=== PATIENT | female | born 1990 | race Caucasian/White ===

== ENCOUNTER 2017-01-03 10:02 | Emergency (ER) | payer OTHER ==
--- NOTE | 2017-01-03 12:28 | ED ORDER SUMMARY ---
..... Patient: ADRIANNA DIAS OrderSheet [facility] VisitID: [id number] [address] [place] [address] 26y, F Registration Date/Time: 01/03/2017 ORDER SHEET Weight: 62.1 kg (stated) Allergies: Sulfa Antibiotics GENERAL ORDERS: MEDICATION ORDERS: LET Topical 1 application (NOW) (11:27 01/03/2017 Germain BECKWITH) (11:32 Ajeck R.N.) Tdap IM 0.5 mL (per protocol) (11:34 01/03/2017 Surendra R.N. per protocol) (11:38 Surendra R.N.) IV FLUIDS: ORDER SHEET NOTES: [Electronically signed by Thanh Del Toro MD (14:01/03/2017)] [Electronically signed by Peter Roach R.N. (15:57 01/03/2017)] [Electronically locked/signed by Peter Roach R.N. (15:57 01/03/2017)]
--- NOTE | 2017-01-03 12:28 | ED NURSING NOTES ---
Clinical Report - Nurses [facility] [place] [address] 01/03/2017 10:05 [id number] Triage time 10:37. Acuity: LEVEL 4. Chief Complaint: FALL (Right hip laceration). 10:39 01/03/17. DIMITRI COMA SCORE: Dimitri Coma Scale: 15- eyes open spontaneously (4); best verbal response- oriented x 4 (5); best motor response- obeys commands (6). --10:41 Peter Roach R.N. 10:37 01/03/17. BP: 127/71. HR: 54. RR: 16. O2 saturation: 100% on room air. Temp: 97.9 F. Pain level now: 01/08. --10:41 Peter Roach R.N. Weight: 62.1 kg stated. Height/Length: 64 inches Per Patient. BMI: 23.5. --10:38 Peter Roach R.N. Medications None. --10:38 Peter Roach R.N. Allergies Sulfa Antibiotics. --10:38 Peter Roach R.N. History This occurred just prior to arrival. Treatment SENIOR JAVA SOFTWARE ENGINEER: None. Trauma activation: Pre-hospital notification of patient arrival was not received. PAST MEDICAL HX: Tetanus status: unknown. Last tetanus: (Likely <5 years). Last normal menstrual period unknown. SOCIAL HX: Never smoker. Occasional alcohol use. No drug use. ABUSE ASSESSMENT: No report of abuse. --10:41 Peter Roach R.N. PROBLEMS: no known problems. ADDITIONAL SURGERIES: IUD. --10:38 Peter Roach R.N. Interventions ID band on patient. To treatment room. --10:41 Peetr Roach R.N. PHYSICAL ASSESSMENT 10:51 01/03/17. Ambulatory to room. GENERAL / NEURO / PSYCH: Alert. Oriented X 4. Appears in no acute distress. HEENT: Pupils equal, round and reactive to light. Head non-tender. RESPIRATORY: Respirations not labored. Chest nontender. Breath sounds within normal limits. CVS: Normal heart rate and rhythm. Pulses within normal limits. Capillary refill less than 2 seconds. GI / : Abdomen soft and nontender. EXTREMITIES: Extremities exhibit normal ROM. Neuro-vascular status intact to the extremity. SKIN: Skin is warm and dry. ( Small laceration on anterior right thigh, bleeding controlled. (covered with clear dressing SENIOR JAVA SOFTWARE ENGINEER). Denies any other injury, denies hitting her head.). --10:51 Peter Roach R.N. NURSING PROGRESS NOTES 10:51 01/03/17. Patient gowned. Reassurance given. Two patient identifiers checked. Call light placed in reach. Bed placed in lowest position. Brakes of bed on. Patient ready for evaluation- chart flagged. --10:51 Peter Roach R.N. 11:30 01/03/2017 LET Topical Topical Solution 1 application. Placed on a 2x2 gauze and secured with tape. Allergies verified and confirmed 5 rights. --11:32 Peter Roach R.N. 11:38 01/03/2017 TDAP IM 0.5 mL given. (Lot#: [id number], expiration date: 09/02/2018, Shoe Ironer: sanofi pasteur). Given in the right deltoid. Allergies verified and confirmed 5 rights. --11:38 Peter Roach R.N. 12:00 01/03/2017 LET Topical Response: no adverse reaction (Effective). --15:56 Peter Roach R.N. 12:23 01/03/17. WOUND REPAIR: Wound repair performed by ED physician. The wound is located on the (anterior-upper thigh). The wound is linear. Preparation: suture tray set-up. Wound cleansed per physician with sterile saline and irrigated per physician with sterile saline using a syringe. Procedure: wound repaired with sutures. Post-procedure: she was stable, no complications, bleeding controlled, neuro-vascular status intact distal to wound, dressing applied and wound care instructions given. Estimated blood loss: 0 mL. --12:23 Peter Roach R.N. 12:30 01/03/2017 TDAP IM Response: no adverse reaction. --15:57 Peter Roach R.N. DISPOSITION / DISCHARGE 12:35 01/03/17. Departure time: 1230. Condition at departure: improved and stable. No learning barriers present. Discharge instructions provided and reviewed with the patient. Reviewed warnings. Treatments reviewed. Patient verbalized understanding. Written instructions provided in Malay. The patient was discharged by the physician. She was discharged home and accompanied by family. She left the Emergency Department ambulatory and via private vehicle. Family member driving. --12:36 Peter Roach R.N. 12:25 01/03/17. BP: 120/70. HR: 55. RR: 16. O2 saturation: 100% on room air. Temp: 97.9 F (oral). Pain level now: 0/10. --12:36 Peter Roach R.N. Locked/Released at 01/03/2017 15:57 by Peter Roach R.N.
--- NOTE | 2017-01-03 12:28 | ED NURSING NOTES ---
Clinical Report - Nurses [facility] [place] [place] [address] 01/03/2017 10:05 [id number] TRI[facility] Triage time 10:37. Acuity: LEVEL 4. Chief Complaint: FALL (Right hip laceration). 10:39 01/03/17. DIMITRI COMA SCORE: Dimitri Coma Scale: 15- eyes open spontaneously (4); best verbal response- oriented x 4 (5); best motor response- obeys commands (6). --10:41 Peter Roach R.N. 10:37 01/03/17. BP: 127/71. HR: 54. RR: 16. O2 saturation: 100% on room air. Temp: 97.9 F. Pain level now: 01/08. --10:41 Peter Roach R.N. Weight: 62.1 kg stated. Height/Length: 64 inches Per Patient. BMI: 23.5. --10:38 Peter Roach R.N. Medications None. --10:38 Peter Roach R.N. Allergies Sulfa Antibiotics. --10:38 Peter Roach R.N. History This occurred just prior to arrival. Treatment HUMAN RESOURCE INTERNSHIP: None. Trauma activation: Pre-hospital notification of patient arrival was not received. PAST MEDICAL HX: Tetanus status: unknown. Last tetanus: (Likely <5 years). Last normal menstrual period unknown. SOCIAL HX: Never smoker. Occasional alcohol use. No drug use. ABUSE ASSESSMENT: No report of abuse. --10:41 Peter Roach R.N. PROBLEMS: no known problems. ADDITIONAL SURGERIES: IUD. --10:38 Peter Roach R.N. Interventions ID band on patient. To treatment room. --10:41 Peter Roach R.N. PHYSICAL ASSESSMENT 10:51 01/03/17. Ambulatory to room. GENERAL / NEURO / PSYCH: Alert. Oriented X 4. Appears in no acute distress. HEENT: Pupils equal, round and reactive to light. Head non-tender. RESPIRATORY: Respirations not labored. Chest nontender. Breath sounds within normal limits. CVS: Normal heart rate and rhythm. Pulses within normal limits. Capillary refill less than 2 seconds. GI / : Abdomen soft and nontender. EXTREMITIES: Extremities exhibit normal ROM. Neuro-vascular status intact to the extremity. SKIN: Skin is warm and dry. ( Small laceration on anterior right thigh, bleeding controlled. (covered with clear dressing HUMAN RESOURCE INTERNSHIP). Denies any other injury, denies hitting her head.). --10:51 Peter Roach R.N. NURSING PROGRESS NOTES 10:51 01/03/17. Patient gowned. Reassurance given. Two patient identifiers checked. Call light placed in reach. Bed placed in lowest position. Brakes of bed on. Patient ready for evaluation- chart flagged. --10:51 Peter Roach R.N. 11:30 01/03/2017 LET Topical Topical Solution 1 application. Placed on a 2x2 gauze and secured with tape. Allergies verified and confirmed 5 rights. --11:32 Peter Roach R.N. 11:38 01/03/2017 TDAP IM 0.5 mL given. (Lot#: [id number], expiration date: 09/02/2018, Jackspooler: sanofi pasteur). Given in the right deltoid. Allergies verified and confirmed 5 rights. --11:38 Peter Roach R.N. 12:00 01/03/2017 LET Topical Response: no adverse reaction (Effective). --15:56 Peter Roach R.N. 12:23 01/03/17. WOUND REPAIR: Wound repair performed by ED physician. The wound is located on the (anterior-upper thigh). The wound is linear. Preparation: suture tray set-up. Wound cleansed per physician with sterile saline and irrigated per physician with sterile saline using a syringe. Procedure: wound repaired with sutures. Post-procedure: she was stable, no complications, bleeding controlled, neuro-vascular status intact distal to wound, dressing applied and wound care instructions given. Estimated blood loss: 0 mL. --12:23 Peter Roach R.N. 12:30 01/03/2017 TDAP IM Response: no adverse reaction. --15:57 Peter Roach R.N. DISPOSITION / DISCHARGE 12:35 01/03/17. Departure time: 1230. Condition at departure: improved and stable. No learning barriers present. Discharge instructions provided and reviewed with the patient. Reviewed warnings. Treatments reviewed. Patient verbalized understanding. Written instructions provided in Nepali. The patient was discharged by the physician. She was discharged home and accompanied by family. She left the Emergency Department ambulatory and via private vehicle. Family member driving. --12:36 Peter Roach R.N. 12:25 01/03/17. BP: 120/70. HR: 55. RR: 16. O2 saturation: 100% on room air. Temp: 97.9 F (oral). Pain level now: 0/10. --12:36 Peter Roach R.N. Locked/Released at 01/03/2017 15:57 by Peter Roach R.N.
--- NOTE | 2017-01-03 12:28 | ED ORDER SUMMARY ---
..... Patient: ADRIANNA DIAS OrderSheet [facility] VisitID: [id number] [address] [place] [address] 26y, F Registration Date/Time: 01/03/2017 ORDER SHEET Weight: 62.1 kg (stated) Allergies: Sulfa Antibiotics GENERAL ORDERS: MEDICATION ORDERS: LET Topical 1 application (NOW) (11:27 01/03/2017 Germain BECKWITH) (11:32 Ajeck R.N.) Tdap IM 0.5 mL (per protocol) (11:34 01/03/2017 Surendra R.N. per protocol) (11:38 Surendra R.N.) IV FLUIDS: ORDER SHEET NOTES: [Electronically signed by Thanh Del Toro MD (14:01/03/2017)] [Electronically signed by Peter Roach R.N. (15:57 01/03/2017)] [Electronically locked/signed by Peter Roach R.N. (15:57 01/03/2017)]
--- NOTE | 2017-01-03 12:28 | ED CLINICAL REPORT ---
Clinical Report - Physicians/Mid Levels [facility] [address] [place] [address] 01/03/2017 10:05 Patient: ADRIANNA DIAS Time Seen: 1058. Arrived- By private vehicle. Historian- patient. HISTORY OF PRESENT ILLNESS Location of injuries- right hip. Chief Complaint: FALL. The injury occurred just prior to arrival. Occurred at a relative's house. Fell while standing and landed on a hard surface; slipped (she slipped and struck her right hip against the edge of the bathtub). The patient denies pain. No blow to the head, neck pain or loss of consciousness. REVIEW OF SYSTEMS No chills, fever, sweats, calf pain or chest pain. No cough, difficulty breathing, pedal edema, palpitations or abdominal pain. No constipation or diarrhea. She has had mild nausea (earlier today, this has resolved now). All systems otherwise negative, except as recorded above. PAST HISTORY Tetanus immunization status is unknown. Problems: no known problems. Additional Surgeries: IUD. Medications: None. Allergies: Sulfa Antibiotics. SOCIAL HISTORY Never smoker. Occasional alcohol use. No drug use. Is an out of state resident. Visiting locally. FAMILY HISTORY No significant family medical history. ADDITIONAL NOTES The nursing notes have been reviewed. PHYSICAL EXAM Vital Signs: 01/03/2017 10:37 BP: 127/71. HR: 54. RR: 16. O2 saturation: 100%. Temp: 97.9 F. Pain level now: 2/10. Have been reviewed. Appearance: Alert. Head: No swelling of head. Eyes: Pupils equal, round and reactive to light. ENT: No dental injury. Pharynx normal. Neck: Painless ROM. CVS: Heart sounds normal. Respiratory: Breath sounds normal. Abdomen: No visible injury. Back: ROM normal. Skin: Skin warm and dry. Normal skin color. Normal skin turgor. Single small, superficial, linear 1.5 cm laceration. SEE LACERATION PROCEDURE NOTE #1; R hip. Extremities: Pelvis stable. Neuro: No motor deficit. No sensory deficit. PROGRESS AND PROCEDURES Laceration Repair: Location: right hip. Time-out completed immediately before the procedure. Length: 1.5cm. Complexity: simple (sutured). Wound depth/shape- linear. Distal neuro/vascular/tendon status normal. Local anesthesia provided using 2% lidocaine with epi. Prepped with Betadine. Wound explored and cleansed. Closure of superficial layer: interrupted 5-0 nylon (5 sutures). Post-procedure: she is stable and there are no complications. Bleeding is controlled. Dressing applied. Tetanus immunization given. Course of Care: Patient is stable. Patient/family counseled. Old medical records ordered. Old records unavailable. Disposition: Discharged. Condition: stable. CLINICAL IMPRESSION Single superficial laceration to the right hip. Fall on same level by slipping. INSTRUCTIONS Protect wound and keep wound area clean. Change dressing twice daily. You may wash wounds briefly, then dry. Apply neosporin twice daily. Sutures/do should be removed in seven days. Warnings: INFECTION: Watch for signs of infection (increasing heat and redness, pus-like drainage, swelling, or increased pain). Return or see your doctor if these signs occur. COMPLICATIONS: Complications from this condition include: possible infection and possible injury to a nerve. Future problems may include infection and pain. INFECTION: Watch for signs of infection (increasing heat and redness, pus-like drainage, swelling, or increased pain). Return or see your doctor if these signs occur. It is important to follow up with a physician for further evaluation and treatment. TETANUS: You were given a tetanus shot during your visit. Make a note for future reference. GENERAL WARNINGS: Return or contact your physician immediately if your condition worsens or changes unexpectedly, if not improving as expected, or if other problems arise. Follow-up: Follow up with your doctor in seven days for suture removal. Call for an appointment. Understanding of the discharge instructions verbalized by patient. (Electronically signed by Thanh Del Toro MD 01/03/2017 14:27)
--- NOTE | 2017-01-03 15:57 | ED MAR SUMMARY ---
..... Medication Administration Record [facility] [address] [place] [address] Patient: ADRIANNA DIAS Visit ID: [id number] 26y, F Weight: 62.1 kg Height/Length: 64 in BMI: 23.5 ALLERGIES: Sulfa Antibiotics Given 11:30 01/03/2017 Peter Roach R.N. Medication Administered: LET [TOPICAL], Dose: 1 application Topical Solution Topical. Medication Ordered: LET Topical 1 application (NOW). Given 11:38 01/03/2017 Peter Roach R.N. Medication Administered: TDAP [IM], Dose: 0.5 mL IM. Medication Ordered: Tdap IM 0.5 mL (per protocol).
--- NOTE | 2017-01-03 15:57 | ED MED RECONCILIATION SUMMARY ---
Patient: ADRIANNA DIAS Medication Reconciliation Report [facility] VisitID: [id number] [address] [place] [address] 26y, F Registration Date/Time: 01/03/2017 Weight: 62.1 kg Height/Length: 64 in. BMI: 23.5 ALLERGIES: Sulfa Antibiotics The patient's Home Medications are listed below: NONE. The source(s) of the original Home Medication information: Not obtained. The following Medications were given to the patient in the Emergency Department: LET [Topical] Topical 1 application, administered: 01/03/2017 11:30:00 AM TDAP [IM] IM 0.5 mL, administered: 01/03/2017 11:38:00 AM The following Medications were prescribed to the patient: None.
--- NOTE | 2017-01-03 15:57 | ED MAR SUMMARY ---
..... Medication Administration Record [facility] [address] [place] [address] Patient: ADRIANNA DIAS Visit ID: [id number] 26y, F Weight: 62.1 kg Height/Length: 64 in BMI: 23.5 ALLERGIES: Sulfa Antibiotics Given 11:30 01/03/2017 Peter Roach R.N. Medication Administered: LET [TOPICAL], Dose: 1 application Topical Solution Topical. Medication Ordered: LET Topical 1 application (NOW). Given 11:38 01/03/2017 Peter Roach R.N. Medication Administered: TDAP [IM], Dose: 0.5 mL IM. Medication Ordered: Tdap IM 0.5 mL (per protocol).
--- NOTE | 2017-01-03 15:57 | ED DISCHARGE INSTRUCTIONS ---
Patient: ADRIANNA DIAS General Instructions [facility] VisitID: [id number] [place] [address] 26y, F Registration Date/Time: 01/03/2017 Single superficial laceration to the right hip. Fall on same level by slipping. INSTRUCTIONS Protect wound and keep wound area clean. Change dressing twice daily. You may wash wounds briefly, then dry. Apply neosporin twice daily. Sutures/do should be removed in seven days. Warnings: INFECTION: Watch for signs of infection (increasing heat and redness, pus-like drainage, swelling, or increased pain). Return or see your doctor if these signs occur. COMPLICATIONS: Complications from this condition include: possible infection and possible injury to a nerve. Future problems may include infection and pain. INFECTION: Watch for signs of infection (increasing heat and redness, pus-like drainage, swelling, or increased pain). Return or see your doctor if these signs occur. It is important to follow up with a physician for further evaluation and treatment. TETANUS: You were given a tetanus shot during your visit. Make a note for future reference. GENERAL WARNINGS: Return or contact your physician immediately if your condition worsens or changes unexpectedly, if not improving as expected, or if other problems arise. Follow-up: Follow up with your doctor in seven days for suture removal. Call for an appointment. Understanding of the discharge instructions verbalized by patient. ADDITIONAL INFORMATION Mechanical Fall You have had a fall today. It appears that the cause is mechanical. That means that you slipped, tripped or lost your balance. If your fall had been due to fainting or a seizure, further tests would be required. Home Care: Rest today and resume your normal activities when you are feeling back to normal. If you were injured during the fall, follow the advice from your doctor regarding care of your injury. You may use acetaminophen (Tylenol) or ibuprofen (Motrin, Advil) to control pain, unless another pain medicine was prescribed. [NOTE: If you have chronic liver or kidney disease or ever had a stomach ulcer or GI bleeding, talk with your doctor before using these medicines.] Fall Prevention: Was there anything that caused your fall that can be fixed, removed, or replaced? Make your home safe by keeping walkways clear of objects you may trip over. Use non-slip pads under rugs. Do not walk in poorly lit areas. Do not stand on chairs or wobbly ladders. Use caution when reaching overhead or looking upward. This position can cause a loss of balance. Be sure your shoes fit properly, have non-slip bottoms and are in good condition. Be cautious when going up and down curbs, and walking on uneven sidewalks. If your balance is poor, consider using a cane or walker. Stay as active as you can. Balance, flexibility, strength, and endurance all come from exercise. They all play a role in preventing falls. Follow Up with your doctor or as advised by our staff. Get Prompt Medical Attention if any of the following occur: Repeated mechanical falls, or unexplained falls Dizziness, fainting or seizure Severe headache Chest pain or shortness of breath Palpitations (very rapid or very slow or irregular heartbeat) Blood in vomit, stools (black or red color) Weakness of an arm or leg or one side of the face Difficulty with speech or vision Laceration (All Closures) Alaceration is a cut through the skin. This will usually require stitches (sutures) or do if it is deep. Minor cuts may be treated with a surgical tape closure orskin glue. Home care The following guidelines will help you care for your laceration at home: Extremity, face, or trunk wounds Keep the wound clean and dry. If a bandage was applied and it becomes wet or dirty, replace it. Otherwise, leave it in place for the first 24 hours. If stitches or do were used, clean the wound daily. After removing the bandage, wash the area with soap and water. Use a wet cotton swab to loosen and remove any blood or crust that forms. The doctor may prescribe an antibiotic cream or ointment to prevent infection. Do not stop taking this medication until you have finished the prescribed course or the doctor tells you to stop. The doctor may also prescribe medications for pain. Follow the doctors instructions for taking these medications. You may remove the bandage to shower as usual after the first 24 hours, but do not soak the area in water (no swimming) until the stitches or do are removed. If surgical tape was used, keep the area clean and dry. If it becomes wet, blot it dry with a towel. If skin glue was used, do not scratch, rub, or pick at the adhesive film. Do not place tape directly over the film. Do not apply liquid, ointment, or creams to the wound while the film is in place. Do not clean the wound with peroxide and do not apply ointments. Avoid activities that cause heavy sweating until the film has fallen off. Protect the wound from prolonged exposure to sunlight or tanning lamps. You may shower as usual but do not soak the wound in water (no baths or swimming). The film will fall off by itself in 510 days. Scalp wounds During the first two days, you may carefully rinse your hair in the shower to remove blood, glass or dirt particles. After two days, you may shower and shampoo your hair normally. Do not soak your scalp in the tub or go swimming until the stitches or do have been removed. Talk with your doctor before applying any antibiotic ointment to the wound. Mouth wounds Eat soft foods to reduce pain. If the cut is inside of your mouth, clean by rinsing after each meal and at bedtime with a mixture of equal parts water and hydrogen peroxide (do not swallow!). Or, you can use a cotton swab to directly apply hydrogen peroxide onto the cut. Mouth wounds can be painful when eating. You may use an [id number]-clegmbl local numbing solution for pain relief. If this is not available, you may use any numbing solution for teething babies. You may apply this directly to the sores with a cotton-tip swab or with your finger. Follow-up care Follow up with your health care provider. Most skin wounds heal within ten days. Mouth and facial wounds heal within five days. However, even with proper treatment, a wound infection may sometimes occur. Therefore, you should check the wound daily for signs of infection listed below. Stitches should be removed from the face within five days; stitches and do should be removed from other parts of the body within 714 days. If dissolving stitches were used in the mouth, these will fall out or dissolve without the need for removal. If tape closures were used, remove them yourself if they have not fallen off after 7 days. Ifskin glue was used, the film will fall off by itself in 510 days. When to seek medical care Get prompt medical attention if any of these occur: Bleeding not controlled by direct pressure Signs of infection, including increasing pain in the wound, increasing wound redness or swelling, or pus coming from the wound Fever of 100.4F (38C) or higher, or as directed by your health care provider Stitches or do come apart or fall out or surgical tape falls off before 7 days Wound edges re-open Bandage Change If the bandage becomes wet or dirty, replace it. Otherwise, leave it in place for the first 24 hours. Then once a day: After removing the bandage, wash the area with soap and water. Use a wet cotton swab to loosen and remove any blood or crust that forms on the wound. After cleaning, apply a thin layer of antibiotic ointment or cream. Reapply the bandage. You may shower as usual after the first 24 hours. If the bandage is on an arm or leg, cover it with a plastic bag rubber banded at both ends before showering. No tub baths or swimming until the bandage is removed and the wound healed (at least 7 days). Diphtheria Toxoid Adsorbed, Pertussis Vaccine, Acellular (Adsorbed), Tetanus Toxoid, Adsorbed Suspension for injection What is this medicine? DIPHTHERIA and TETANUS TOXOIDS; PERTUSSIS VACCINE (dif THEER ee uh and TET n us TOK soids; per TOBIAS oneal SEEN) is used to prevent diphtheria, tetanus, and pertussis infections. How should I use this medicine? This vaccine is for injection into a muscle. It is given by a health assistant child care teacher. A copy of Vaccine Information Statements will be given before each vaccination. Read this sheet carefully each time. The sheet may change frequently. Talk to your warp knitting machine operator regarding the use of this vaccine in children. While the DTP vaccine may be given to children ages 6 weeks to 7 years and the Tdap vaccine may be given to children at least 10 years old, precautions do apply. What side effects may I notice from receiving this medicine? Side effects that you should report to your doctor or health assistant child care teacher as soon as possible: allergic reactions like skin rash, itching or hives, swelling of the face, lips, or tongue breathing problems fever of 103 degrees F or more flu-like symptoms inconsolable crying infection pain, tingling, numbness in the hands or feet seizures swelling of arm or leg that was injected unusually weak or tired Side effects that usually do not require immediate medical attention (report these side effects to your doctor or health assistant child care teacher if they continue or are bothersome): fussy, irritable loss of appetite fever of 102 degrees F or less pain, tenderness, redness, swelling, or a 'knot' at site where injected vomiting What may interact with this medicine? immune globulin medicines that suppress your immune function like adalimumab, anakinra, infliximab medicines to treat cancer medicines that treat or prevent blood clots like warfarin, enoxaparin, and dalteparin steroid medicines like prednisone or cortisone What if I miss a dose? It is important not to miss your dose. Call your doctor or health assistant child care teacher if you are unable to keep an appointment. Where should I keep my medicine? This drug is given in a hospital or clinic and will not be stored at home. What should I tell my health care provider before I take this medicine? They need to know if you have any of these conditions: blood disorders like hemophilia fever or infection immune system problems neurologic disease seizures an unusual or allergic reaction to vaccines, thimerosal, latex, other medicines, foods, dyes, or preservatives or trying to get breast-feeding What should I watch for while using this medicine? See your health care provider for all shots of this vaccine as directed. To have protection from infection, you must have 3 shots of this vaccine plus boosters as needed. Tell your doctor right away if you have any serious or unusual side effects after getting this vaccine. You have been given the following additional information: Fall, Mechanical Laceration, All Dressing Change Diphtheria Toxoid Adsorbed, Pertussis Vaccine, Acellular (Adsorbed), Tetanus Toxoid, Adsorbed Suspension for injection (Electronically signed by Thanh Del Toro MD 01/03/2017 14:27)
--- NOTE | 2017-01-03 15:57 | ED MED RECONCILIATION SUMMARY ---
Patient: ADRIANNA DIAS Medication Reconciliation Report [facility] VisitID: [id number] [address] [place] [address] 26y, F Registration Date/Time: 01/03/2017 Weight: 62.1 kg Height/Length: 64 in. BMI: 23.5 ALLERGIES: Sulfa Antibiotics The patient's Home Medications are listed below: NONE. The source(s) of the original Home Medication information: Not obtained. The following Medications were given to the patient in the Emergency Department: LET [Topical] Topical 1 application, administered: 01/03/2017 11:30:00 AM TDAP [IM] IM 0.5 mL, administered: 01/03/2017 11:38:00 AM The following Medications were prescribed to the patient: None.
== END 2017-01-03 12:30 | disposition home or self-care (01) ==
LOC: ED SRH 10:02
DX: S71.011A Laceration without foreign body, right hip, initial encounter (principal); W01.198A Fall on same level from slipping, tripping and stumbling with subsequent striking against other object, initial encounter; Y93.9 Activity, unspecified; Y92.002 Bathroom of unspecified non-institutional (private) residence as the place of occurrence of the external cause; Y99.9 Unspecified external cause status; Z88.2 Allergy status to sulfonamides; Z23 Encounter for immunization